=== PATIENT | female | born 1970 | race Caucasian/White ===

== ENCOUNTER 2019-10-30 05:59 | Day surgery (SDC) | payer BC ==
[2019-10-30] MEDS ORDERED: Dextrose 5%-Lactated Ringers 1,000 ML IV SCH (06:30)
[2019-10-30] MEDS ORDERED: fentaNYL 100 MCG/2 ML SDV ONE (07:14)
[2019-10-30] MEDS ORDERED: Propofol 200 MG/20 ML SDV ONE (07:14)
[2019-10-30] MEDS ORDERED: Midazolam 1 MG/ML 2 ML SDV ONE (07:14)
--- NOTE | 2019-11-06 13:10 | OR ---
DATE OF PROCEDURE: 10/30/2019 SURGEON: Dougie Valera MD PREOPERATIVE DIAGNOSIS: Indications for screening colonoscopy. POSTOPERATIVE DIAGNOSIS: Normal colonoscopic exam. OPERATIVE PROCEDURE: Screening colonoscopy. ANESTHESIA: IV sedation. INDICATION FOR PROCEDURE: A 49-year-old female presenting for a screening colonoscopy. She has no personal or family history of colon neoplasia. The plan is to proceed with a colonoscopy with polypectomy and/or biopsies as indicated. Potential risks including bleeding and perforation were discussed, and the patient wishes to proceed. DETAILS OF PROCEDURE: The patient was taken to the operating room and placed in a left lateral decubitus position. IV sedation was administered, after which the initial digital rectal exam was performed, was unremarkable. Colonoscope was then passed to the level of the cecum. The prep was quite good with only a small amount of liquid stool being present. To that level, there were no diverticula, no areas of colitis, no polyps or other signs of neoplasia. The scope was then withdrawn, the above findings were reconfirmed, and the procedure then concluded. Unless other signs or symptoms develop in the interim, next colonoscopy should be scheduled in 10 years. Dougie Valera MD /[id number]
== END 2019-10-30 10:15 | disposition home or self-care (01) ==
LOC: JP.SDS 05:59
PROVIDERS: ATTEND Surgery
DX: Z12.11 Encounter for screening for malignant neoplasm of colon (principal); Z88.5 Allergy status to narcotic agent
CPT/HCPCS: 81025; J2250; J2704; J3010; J7121